=== PATIENT | female | born 1985 | race Caucasian/White ===

== ENCOUNTER → 2017-01-01 | Outpatient (CLI) | payer OTHER ==
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
== END | disposition home or self-care (01) ==
LOC: KCIC US 08:52
PROVIDERS: ATTEND Family Medicine
DX: R22.41 Localized swelling, mass and lump, right lower limb (principal); V29.9XXD Motorcycle rider (driver) (passenger) injured in unspecified traffic accident, subsequent encounter
CPT/HCPCS: 76882

== ENCOUNTER → 2019-07-11 | Outpatient (CLI) | payer OTHER ==
--- NOTE | 2019-07-14 18:06 | PATHOLOGY ---
Note [facility] Accession Number: [id number] TESTS RESULT FLAG UNITS REF RANGE LAB Clinician Provided Cytology Information No. of containers..01 Other (Miscellaneous) Source: RT THYROID NODULE DIAGNOSIS: RT THYROID NODULE NEGATIVE FOR MALIGNANT CELLS. B[place] CATEGORY II. SPECIMEN CONSISTS OF ABUNDANT BENIGN FOLLICULAR CELLS, HEMOSIDERIN-LADEN MACROPHAGES, SCANT COLLOID AND BLOOD. THE PATTERN IS CONSISTENT WITH ADENOMATOID NODULE. THIS INTERPRETATION INCLUDES EVALUATION OF A CELL BLOCK. Pathologist ICD10: 02 E04.1 Signed out by: 02 Chepe Vu MD, Pathologist NPI- [id number] Performed by: 01 Maryam Salas, Substance Abuse Technician ([facility]) Gross description: 30 ML, JOSE ARMANDO/CLEAR, [id number] /LCS 07/11/2019 1727 Local FLAG LEGEND: L-Low Normal,H-High Normal,LL-Alert Low,HH-Alert High <-Panic Low,>-Panic High,A-Abnormal,AA-Critical Abnormal Performed at: [facility] [address] [place] [address] Percy Carter MD, 02 [facility] [address] [place] [address] Chepe Vu MD, Specimen Comment: A courtesy copy of this report has been sent to [phone], [phone] Specimen Comment: [id number], Specimen Comment: [id number] Specimen Comment: Report sent to ,DR LOAIZA / DR SOOD Performed at: [address], [place], [place] [id number] MD Percy Carter MD Phone: [phone]
--- NOTE | 2019-07-29 13:35 | RAD ---
Examination: Ultrasound-guided right thyroid lobe fine needle aspiration biopsy. INDICATION: 34-year-old woman with a dominant right thyroid lobe nodule requested for biopsy. TECHNIQUE AND FINDINGS: Informed consent was obtained and an appropriate procedural pause was observed. Using standard sterile technique, ultrasound image guidance and local anesthesia with buffered lidocaine, a total of 4 passes using 25-gauge needles were made in the dominant right thyroid lobe nodule with specimen adequacy of each pass confirmed at the bedside with cytopathology review. Following acquisition of a satisfactory number of tissue samples, the puncture site was dressed and postprocedure instructions were reviewed. Patient tolerated the procedure without incident. No apparent complications. IMPRESSION: Successful, uncomplicated right thyroid lobe fine needle aspiration biopsy. An addendum will be issued when pathology results become available.
== END | disposition home or self-care (01) ==
LOC: US 08:37
PROVIDERS: ATTEND Surgery
DX: E04.1 Nontoxic single thyroid nodule (principal)
CPT/HCPCS: 60300; 76942; 88173; 88305